=== PATIENT | male | born 1965 | race Caucasian/White ===

== ENCOUNTER 2020-01-31 10:56 | Outpatient (CLI) | payer OTHER, SELFPAY ==
--- NOTE | 2020-01-31 11:57 | XR_ITS ---
WS: [id number] Cervical spine, 3 views, 01/31/2020 Clinical Data: CERVICAL SPINE PAIN Comparison: None. Findings: No compression fractures are seen. There is degenerative disc narrowing at the 5-C6 and C6- C7. There is anterior osteochondral arthritic spurring at C4, C5 and C6. The odontoid is normal. The soft tissues of the neck in the lung apices are unremarkable. There are small surgical screws in the right maxillary sinus wall and right lateral orbit from surgery. XR/XR cervical spine 3V* [id number] Impression: 1. Degenerative disc disease at C4-C5 and C5-C6. 2. Osteoarthritis of the vertebral bodies C5 and C6.
== END 2020-01-31 10:57 | disposition home or self-care (01) ==
PROVIDERS: Visit Provider Internal Medicine
DX: M50.322 Other cervical disc degeneration at C5-C6 level (principal); M47.812 Spondylosis without myelopathy or radiculopathy, cervical region
CPT/HCPCS: 72040